=== PATIENT | male | born 1970 | race Caucasian/White ===

== ENCOUNTER 2019-07-19 10:06 | Day surgery (SDC) | payer BC ==
[~2019-07-19 10:06] MED LIST: Bupivacaine 0.25% HCL 30 ML VIAL ONE; Bupivacaine PF 0.5% 30 ML VIAL ONE; Fentanyl 100 MCG/2 ML VIAL ONE; Midazolam HCl 2 mg/2 ml Vial ONE
[2019-07-19] MEDS ORDERED: Ketorolac Tromethamine 30 MG/ML VIAL ONE (10:21)
--- NOTE | 2019-07-19 10:51 | HP ---
HISTORY OF PRESENT ILLNESS: A 49-year-old male, presents with 24 hours of abdominal pain, epigastric, right lower quadrant, suffered anorexia and nausea, presents to emergency room yesterday. CAT scan confirmed the appendicitis without any other remarkable findings. He did have an appendicolith. He had an EKG there. His white count was 13 and hemoglobin 15. Basic metabolic profile normal. ALLERGIES: NONE. SOCIAL HISTORY: Tobacco, none, but he does dip occasionally. Alcohol, 1 to 2 drinks a day. MEDICATIONS: See list. PAST SURGICAL HISTORY: Pacemaker for cardiogenic syncope, right meniscectomy. REVIEW OF SYSTEMS: Ten-point noncontributory. PHYSICAL EXAMINATION: VITAL SIGNS: Temperature 98.6 degrees, heart rate 86, respirations 18, saturations 97%. HEAD, EARS, EYES, NOSE, AND THROAT: Unremarkable. LUNGS: Clear to auscultation. CARDIAC: Regular rate and rhythm without murmur or gallop. ABDOMEN: Soft. Tenderness in right lower quadrant. No guarding or rebound. EXTREMITIES: Unremarkable. ASSESSMENT AND PLAN: 1. Acute appendicitis. Recommend a laparoscopic video appendectomy. Risks of infection, bleeding, reoperation were explained, and he consents. 2. Pacemaker status for cardiogenic syncope, having undergone in 2017, Dr. Rodriguez' stress test. His pacemaker was placed in [place]. It has not been activated since placement. Job ID: [id number]
[2019-07-19] MEDS ORDERED: PROPOFOL 200 MG/20 ML VIAL ONE (10:53)
[2019-07-19] MEDS ORDERED: diphenhydrAMINE 50 MG/ML VIAL ONE (10:53)
[2019-07-19] MEDS ORDERED: Rocuronium Bromide 10 MG/ML (10ML VIAL) ONE (10:53)
[2019-07-19] MEDS ORDERED: Ondansetron PF 4 MG/2 ML Vial ONE (10:53)
[2019-07-19] MEDS ORDERED: Glycopyrrolate 0.2 MG/ML 5 ML SYRINGE ONE (10:53)
[2019-07-19] MEDS ORDERED: Dexamethasone 20 MG/5 ML VIAL ONE (10:53)
[2019-07-19] MEDS ORDERED: Succinylcholine Chloride 20 MG/ML 10 ml SYRINGE FS ONE (10:53)
[2019-07-19] MEDS ORDERED: Lidocaine 1% w/Epinephrine 1:100K 30 ML VIAL ONE (11:16)
[2019-07-19] MEDS ORDERED: HYDROcodone/Acetaminophen 5/325 mg Tablet ONE (13:53)
--- NOTE | 2019-07-19 15:59 | OP ---
DATE OF PROCEDURE: 07/19/2019 PREOPERATIVE DIAGNOSIS: Acute appendicitis. POSTOPERATIVE DIAGNOSIS: Acute appendicitis. PROCEDURE PERFORMED: Laparoscopic video appendectomy. ANESTHESIA: General, local with 0.5% Marcaine 30 mL, mixed with 1% Xylocaine with epinephrine 30 mL. DESCRIPTION OF PROCEDURE: The patient was taken to the operating room, where under general anesthesia, Kan catheter placed at the beginning and removed at the end. Abdomen was clipped of hair, prepared with ChloraPrep, and draped in routine fashion. Local anesthetic was infiltrated in the skin and subcutaneous tissue about each port site. Infraumbilical incision made. Pneumoperitoneum to 15 mmHg obtained with a Veress needle, replaced with a 5 port and laparoscope inserted. A suprapubic incision made and a 12 port placed. Right lateral subcostal incision made and a 5 port placed. Appendix was acutely inflamed. Mesoappendix was taken down with the LigaSure. The stump of the appendix was divided with Endo-AZALIA blue load stapler. Stapled cecal stump was hemostatic and secured. Appendix was removed and submitted to Pathology. Irrigant and pneumoperitoneum evacuated. All instruments were removed. All skin incisions were approximated with interrupted subdermal 4-0 Monocryl after suprapubic fascia was approximated with 0 Vicryl UR needle. The patient tolerated the procedure well. Job ID: [id number]
== END 2019-07-19 14:02 | disposition home or self-care (01) ==
LOC: SDC 10:06
PROVIDERS: ATTEND Specialist
PROC: 0DTJ4ZZ Resection of Appendix, Percutaneous Endoscopic Approach (ICD-10-PCS; principal; 2019-07-19)
DX: K35.80 Unspecified acute appendicitis (principal); K38.1 Appendicular concretions; F17.290 Nicotine dependence, other tobacco product, uncomplicated; R55 Syncope and collapse; Z95.0 Presence of cardiac pacemaker
CPT/HCPCS: 88304; J0131; J1100; J1200; J1885; J2001; J2250; J2405; J2704; J3010; S0020

== ENCOUNTER 2021-02-21 08:07 | Outpatient (CLI) | payer BC | END 2021-02-21 08:08 | disposition home or self-care (01) | LOC: SCSRAD 08:07 | PROVIDERS: ATTEND Specialist | DX: M51.17 Intervertebral disc disorders with radiculopathy, lumbosacral region (principal); M43.17 Spondylolisthesis, lumbosacral region | CPT/HCPCS: 72120 ==

== ENCOUNTER 2022-04-02 07:12 | Outpatient (CLI) | payer BC ==
[2022-03-31 11:37] VITALS: BMI 26.9
[2022-04-02 07:43] VITALS: TEMP 98.8
[2022-04-02 10:32] VITALS: BP 133/90
[2022-04-02] MEDS ORDERED: Iopamidol-M 200 41% 20 ML VIAL ONE (14:36)
== END 2022-04-02 10:20 | disposition home or self-care (01) ==
LOC: RAD 07:12
PROVIDERS: ATTEND Specialist
DX: M51.17 Intervertebral disc disorders with radiculopathy, lumbosacral region (principal); M51.16 Intervertebral disc disorders with radiculopathy, lumbar region; M47.26 Other spondylosis with radiculopathy, lumbar region; M43.17 Spondylolisthesis, lumbosacral region; M48.07 Spinal stenosis, lumbosacral region
CPT/HCPCS: 62304; 72132; Q9966

== ENCOUNTER 2022-09-08 14:47 | Outpatient (CLI) | payer BC | END 2022-09-08 14:48 | disposition home or self-care (01) | LOC: LABBT 14:47 | PROVIDERS: ATTEND Surgery | DX: Z01.812 Encounter for preprocedural laboratory examination (principal); M43.16 Spondylolisthesis, lumbar region | CPT/HCPCS: 80048; 85027; 85610; 85730; 86850; 86900; 86901 ==

== ENCOUNTER 2022-09-11 07:59 | Inpatient (IN) | payer BC ==
[2022-09-08 16:00] LABS: Hemoglobin 15.5 g/dL (13.5-17.5); Mean Corpuscular HGB CONC 35.1 g/dL (32.0-36.0); Mean Corpuscular Hemoglobin 31.7 pg (27.0-33.0); Mean Corpuscular Volume 90.2 fl (81.2-95.1); Mean Platelet Volume 10.7 fl (7.4-10.4); Platelet Count 195 10x3/uL (150-450); RBC Distribution Width 12.1 % (11.5-14.5); Red Blood Cell (RBC) Count 4.89 10x6/uL (4.32-5.72); White Blood Cell (WBC) Count 5.6 10x3/uL (3.5-10.5)
[2022-09-08 16:17] LABS: Anion Gap 14 mmol/L (10-20); BUN (Urea Nitrogen) 22 mg/dL (8.4-25.7); Calc. Creatinine Clearance 0 mL/min (70-130); Calcium 9.7 mg/dL (7.8-10.44); Carbon Dioxide 24 mmol/L (22-29); Chloride 108 mmol/L (98-107); Estimated GFR 91; Glucose 102 mg/dL (70-105); Sodium 142 mmol/L (136-145)
[2022-09-08 16:19] LABS: INR-International Normal Ratio 0.9; PTT 25.6 sec (22.0-33.0); Prothrombin Time 10.2 sec (9.5-12.1)
[2022-09-11] MEDS ORDERED: Vancomycin 1 GM VIAL ONE (08:35)
[2022-09-11] MEDS ORDERED: Thrombin 5000 UNITS/5 ML VIAL ONE ×3 (08:35→12:56)
[2022-09-11] MEDS ORDERED: Sodium Chloride 0.9% 100 ML ONE (09:06)
[2022-09-11] MEDS ORDERED: CEFAZOLIN 2 GM VIAL ONE (09:06)
[2022-09-11] MEDS ORDERED: Phenylephrine 10 MG/ML VIAL ONE (09:33)
[2022-09-11] MEDS ORDERED: Famotidine/PF 20 mg/2ml Vial ONE (09:33)
[2022-09-11] MEDS ORDERED: SUGAMMADEX SODIUM 200 MG/2 ML VIAL ONE (09:33)
[2022-09-11] MEDS ORDERED: Fentanyl 250 MCG/5 ML VIAL ONE (09:33)
[2022-09-11] MEDS ORDERED: Glycopyrrolate 0.2 MG/ML 5 ML SYRINGE ONE (09:57)
[2022-09-11] MEDS ORDERED: Rocuronium Bromide 10 MG/ML (10ML VIAL) ONE (09:57)
[2022-09-11] MEDS ORDERED: Ondansetron PF 4 MG/2 ML Vial ONE (09:57)
[2022-09-11] MEDS ORDERED: ePHEDrine 50 MG/ML VIAL ONE (09:57)
[2022-09-11] MEDS ORDERED: NEOSTIGMINE 3 MG/3 ML SYR 3 MG/3 ML SYRINGE ONE (09:57)
[2022-09-11] MEDS ORDERED: Vecuronium 10 MG VIAL ONE (09:57)
[2022-09-11] MEDS ORDERED: Lidocaine 1% PF 5 ML VIAL ONE (09:57)
[2022-09-11] MEDS ORDERED: Ketorolac Tromethamine 30 MG/ML VIAL ONE (09:57)
[2022-09-11] MEDS ORDERED: PROPOFOL 200 MG/20 ML VIAL ONE (09:57)
[2022-09-11] MEDS ORDERED: Dexamethasone 20 MG/5 ML VIAL ONE (09:57)
[2022-09-11] MEDS ORDERED: Metoclopramide HCl 10 MG/2 ML VIAL ONE (09:57)
[2022-09-11] MEDS ORDERED: PHENYLEPHRINE-NS 100 MCG/ML 10 ML SYRINGE ONE (09:57)
[2022-09-11] MEDS ORDERED: Ondansetron HCl/PF 4 MG/2 ML Vial IVP PRN (13:13)
[2022-09-11] MEDS ORDERED: PACU-Morphine 4MG/ML VIAL SLOW IVP PRN (13:13)
[2022-09-11] MEDS ORDERED: Meperidine HCl/PF 25 MG/ML VIAL SLOW IVP PRN (13:13)
[2022-09-11] MEDS ORDERED: Promethazine HCl 25 MG/ML VIAL IM PRN (13:13)
[2022-09-11] MEDS ORDERED: Morphine 10 MG/ML VIAL ONE (13:34)
[2022-09-11] MEDS ORDERED: diphenhydrAMINE 25 MG CAP PO PRN (13:48)
[2022-09-11] MEDS ORDERED: Ondansetron PF 4 MG/2 ML Vial IVP PRN (13:48)
[2022-09-11] MEDS ORDERED: Acetaminophen 325 MG TAB PO PRN (13:48)
[2022-09-11] MEDS ORDERED: hydrALAZINE 20 MG/ML VIAL SLOW IVP PRN (13:52)
[2022-09-11] MEDS ORDERED: Polyethylene Glycol 3350 17 GM Packet PO PRN (13:55)
[2022-09-11] MEDS ORDERED: Fentanyl 100 MCG/2 ML VIAL ONE ×2 (13:58→14:32)
[2022-09-11] MEDS ORDERED: CEFAZOLIN 2 GM in Sodium Chloride 0.9% 100 ML IVPB SCH (14:00)
[2022-09-11] MEDS ORDERED: Diazepam 10 MG/2 ML SYRINGE IVP SCH (14:43)
[2022-09-11] MEDS ORDERED: oxyCODONE 5 MG TAB PO PRN (17:01)
[2022-09-11] MEDS: Morphine 2 MG/ML VIAL SLOW IVP PRN ×2 (17:09→21:08)
[2022-09-11] MEDS: Sodium Chloride 0.9% 1,000 ML IV SCH (17:14)
[2022-09-11] MEDS: oxyCODONE 5 MG TAB PO PRN ×2 (17:50→22:15)
[2022-09-11 18:31] VITALS: BMI 27.7
[2022-09-11] MEDS: CEFAZOLIN 2 GM in Sodium Chloride 0.9% 100 ML IVPB SCH (19:20)
[2022-09-11] MEDS: Ketorolac Tromethamine 30 MG/ML VIAL IVP PRN (19:31)
[2022-09-11] MEDS: Diazepam 5 MG TAB PO PRN (19:33)
[2022-09-11] MEDS: Docusate 100 MG CAP PO SCH (19:33)
[2022-09-12] MEDS: Ketorolac Tromethamine 30 MG/ML VIAL IVP PRN ×2 (00:13→18:24)
[2022-09-12] MEDS: Morphine 2 MG/ML VIAL SLOW IVP PRN ×4 (01:07→18:25)
[2022-09-12] MEDS: oxyCODONE 5 MG TAB PO PRN ×5 (02:02→21:33)
[2022-09-12] MEDS: CEFAZOLIN 2 GM in Sodium Chloride 0.9% 100 ML IVPB SCH ×2 (02:02→11:13)
[2022-09-12] MEDS: Sodium Chloride 0.9% 1,000 ML IV SCH ×3 (04:16→20:03)
[2022-09-12 06:02] LABS: #Lymphocytes 1.3 thou/uL (1.20-3.40); #Monocytes 0.9 thou/uL (0.11-0.59); #Neutrophils 8.9 thou/uL (1.40-6.50); %Basophils 0.1 % (0.0-1.0); %Eosinophils 0.2 % (0.0-10.0); %Lymphocytes 11.7 % (21.0-51.0); %Monocytes 8.4 % (0.0-10.0); %Neutrophils 79.7 % (42.0-75.0); Hemoglobin 12.6 g/dL (14.0-18.0); Mean Corpuscular HGB CONC 34.3 g/dL (32.0-36.0); Mean Corpuscular Hemoglobin 32.4 pg (27.0-31.0); Mean Corpuscular Volume 94.7 fl (78.0-98.0); Mean Platelet Volume 8.3 fL (7.4-10.4); Platelet Count 151 10x3/uL (130-400); RBC Distribution Width 11.5 % (11.5-14.5); Red Blood Cell (RBC) Count 3.87 mill/uL (4.70-6.10); White Blood Cell (WBC) Count 11.1 10x3/uL (4.8-10.8)
[2022-09-12 06:19] LABS: Anion Gap 12 mmol/L (10-20); BUN (Urea Nitrogen) 15 mg/dL (8.4-25.7); Calc. Creatinine Clearance 100 mL/min (70-130); Calcium 8.7 mg/dL (7.8-10.44); Carbon Dioxide 23 mmol/L (22-29); Chloride 107 mmol/L (98-107); Estimated GFR 97; Glucose 132 mg/dL (70-105); Potassium 4.3 mmol/L (3.5-5.1); Sodium 138 mmol/L (136-145)
[2022-09-12] MEDS: Metoprolol Tartrate 25 MG TAB PO SCH (09:01)
[2022-09-12] MEDS: Atorvastatin Calcium 10 MG TAB PO SCH (09:06)
[2022-09-12] MEDS: Docusate 100 MG CAP PO SCH ×2 (09:06→21:33)
[2022-09-12] MEDS: Diazepam 5 MG TAB PO PRN (21:33)
[2022-09-13] MEDS: Ketorolac Tromethamine 30 MG/ML VIAL IVP PRN ×2 (00:21→07:16)
[2022-09-13] MEDS: Sodium Chloride 0.9% 1,000 ML IV SCH (07:16)
[2022-09-13] MEDS: Metoprolol Tartrate 25 MG TAB PO SCH (08:47)
[2022-09-13] MEDS: oxyCODONE 5 MG TAB PO PRN ×2 (08:47→12:26)
[2022-09-13] MEDS: Atorvastatin Calcium 10 MG TAB PO SCH (08:47)
[2022-09-13] MEDS: Docusate 100 MG CAP PO SCH (08:47)
[2022-09-13 12:47] VITALS: BP 115/77; TEMP 98.5
== END 2022-09-13 15:24 | disposition home or self-care (01) | DRG 460 ==
LOC: SDC 07:59 → SURG A 15:52 → OBSVTOIN 09-12 08:08
PROVIDERS: ADMIT Surgery; ATTEND Surgery
PROC: 0SG30AJ Fusion of Lumbosacral Joint with Interbody Fusion Device, Posterior Approach, Anterior Column, Open Approach (ICD-10-PCS; principal; 2022-09-11)
PROC: 01NB0ZZ Release Lumbar Nerve, Open Approach (ICD-10-PCS; 2022-09-11)
PROC: 01NR0ZZ Release Sacral Nerve, Open Approach (ICD-10-PCS; 2022-09-11)
DX: M43.17 Spondylolisthesis, lumbosacral region (principal); Z88.2 Allergy status to sulfonamides; Z91.048 Other nonmedicinal substance allergy status; M48.061 Spinal stenosis, lumbar region without neurogenic claudication; M47.26 Other spondylosis with radiculopathy, lumbar region
CPT/HCPCS: 36415; 80048; 85025; 85027; 85610; 85730; 86850; 86900; 86901; 96365; 96366; 96375; 96376; C1713; C1768; C1776; C1889; G0378; J1100; J1885; J2270; J2272; J2370; J2405; J2704; J2765; J3010; J3360; J3370; J3490; J7050; S0028

== ENCOUNTER 2023-02-24 09:55 | Outpatient (CLI) | payer BC | END 2023-02-24 09:56 | disposition home or self-care (01) | LOC: RAD 09:55 | PROVIDERS: ATTEND Specialist | DX: M47.816 Spondylosis without myelopathy or radiculopathy, lumbar region (principal); Z98.1 Arthrodesis status | CPT/HCPCS: 72120 ==